=== PATIENT | female | born 1970 | race Caucasian/White ===

== ENCOUNTER 2019-10-18 10:56 | Emergency (ER) | payer BC, OTHER ==
--- NOTE | 2019-10-18 11:18 | ER Document Report ---
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 Patient reports she had a headache on Monday and Monday. She reports she really has not felt good all week. 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 She reports staff upstairs told her her coloring was not good. She denies fever. Reports she has been eating and drinking okay. Reports she is tasting without problems. I have greeted and performed a rapid initial assessment of this patient. A comprehensive ED assessment and evaluation of the patient, analysis of test results and completion of the medical decision making process will be conducted by additional ED providers. TRAVEL OUTSIDE OF THE [place] IN LAST 30 DAYS: No - Related Data Allergies/Adverse Reactions: cobamamide [From B12] Allergy (Severe, Verified 10/18/19 11:08) Hives Cyanocobalamin [From B12] Allergy (Severe, Verified 10/18/19 11:08) Hives sumatriptan [From Imitrex] Allergy (Intermediate, Verified 10/18/19 11:08) Shortness of Breath sumatriptan succinate [From Imitrex] Allergy (Intermediate, Verified 10/18/19 11:08) Shortness of Breath Past Medical History - Past Medical History Cardiac Medical History: Denies: Hx Coronary Artery Disease, Hx Heart Attack, Hx Hypertension Pulmonary Medical History: Denies: Hx Asthma, Hx Bronchitis, Hx COPD, Hx Pneumonia Neurological Medical History: Reports: Hx Migraine. Denies: Hx Cerebrovascular Accident, Hx Seizures Renal/ Medical History: Reports: Hx Ovarian Cysts - right side - removed GI Medical History: Reports: Hx Gastroesophageal Reflux Disease Musculoskeltal Medical History: Denies Hx Arthritis Psychiatric Medical History: Reports: Hx Depression Past Surgical History: Reports: Hx Appendectomy, Hx Section - Immunizations Hx Diphtheria, Pertussis, Tetanus Vaccination: Yes Physical Exam - Vital signs Vitals: Temp Pulse Resp BP Pulse Ox 97.9 F 64 16 143/99 H 99 10/18/19 11:06 10/18/19 11:06 10/18/19 11:06 10/18/19 11:06 10/18/19 11:06 Course - Vital Signs Vital signs: Temp Pulse Resp BP Pulse Ox 97.9 F 64 16 143/99 H 99 10/18/19 11:06 10/18/19 11:06 10/18/19 11:06 10/18/19 11:06 10/18/19 11:06
[2019-10-18 11:57] LABS: ABSOLUTE EOSINOPHILS # (AUTO) 0.1 10^3/uL (0.0-0.6); ABSOLUTE LYMPHOCYTES (AUTO) 1.9 10^3/uL (0.5-4.7); ABSOLUTE MONOCYTES (AUTO) 0.4 10^3/uL (0.1-1.4); ABSOLUTE NEUT (AUTO) 3.8 10^3/uL (1.7-8.2); BASOPHILS % (AUTO) 0.4 % (0-2); EOSINOPHILS % (AUTO) 1.7 % (0-6); HEMATOCRIT 38.5 % (36.0-47.0); HEMOGLOBIN 13.3 g/dL (12.0-15.5); LYMPHOCYTES % (AUTO) 31.2 % (13-45); MEAN CORPUSCULAR HGB CONC 34.4 g/dL (32.0-36.0); MEAN CORPUSCULAR VOLUME 90 fl (80-97); MONOCYTES % (AUTO) 6.1 % (3-13); PLATELET COUNT 204 10^3/uL (150-450); RED BLOOD COUNT 4.27 10^6/uL (3.72-5.28); SEGMENTED NEUTROPHILS % (AUTO) 60.6 % (42-78); TOTAL CELLS COUNTED % (AUTO) 100 %; WHITE BLOOD COUNT 6.2 10^3/uL (4.0-10.5)
[2019-10-18 12:06] LABS: A TYPE INFLUENZA AG NEGATIVE (NEGATIVE); B INFLUENZA AG NEGATIVE (NEGATIVE)
--- NOTE | 2019-10-18 12:16 | RADIOLOGY REPORT (SQ) ---
EXAM DESCRIPTION: CHEST SINGLE VIEW IMAGES COMPLETED DATE/TIME: 10/18/2019 11:50 am REASON FOR STUDY: cp COMPARISON: 10/13/2013 EXAM PARAMETERS: NUMBER OF VIEWS: One view. TECHNIQUE: Single frontal radiographic view of the chest acquired. RADIATION DOSE: NA LIMITATIONS: None. FINDINGS: LUNGS AND PLEURA: No opacities, masses or pneumothorax. No pleural effusion. MEDIASTINUM AND HILAR STRUCTURES: No masses. Contour normal. HEART AND VASCULAR STRUCTURES: Heart normal in size. Normal vasculature. BONES: No acute findings. HARDWARE: None in the chest. OTHER: No other significant finding. IMPRESSION: NO ACUTE RADIOGRAPHIC FINDING IN THE CHEST. TECHNICAL DOCUMENTATION: JOB ID: [id number] 2010 [employer]- All Rights Reserved Reading location - IP/workstation name: [email or web address]
[2019-10-18 12:20] LABS: ALBUMIN 4.5 g/dL (3.5-5.0); ALKALINE PHOSPHATASE 82 U/L (38-126); ANION GAP 10 (5-19); ASPARTATE AMINO TRANSFERASE 24 U/L (14-36); BILIRUBIN,TOTAL 0.6 mg/dL (0.2-1.3); BLOOD UREA NITROGEN 17 mg/dL (7-20); CALCIUM 9.6 mg/dL (8.4-10.2); CARBON DIOXIDE 25 mmol/L (22-30); CHLORIDE 104 mmol/L (98-107); GLUCOSE 90 mg/dL (75-110); POTASSIUM 4.1 mmol/L (3.6-5.0); TOTAL PROTEIN 7.4 g/dL (6.3-8.2)
--- NOTE | 2019-10-18 13:08 | ER Document Report ---
ED General - General Chief Complaint: Chest Pain > 30 Stated Complaint: CHEST PAIN Time Seen by Provider: 10/18/19 11:07 Primary Care Provider: DIANE MISTRY PA-C [Primary Care Provider] - Follow up as needed Mode of Arrival: Wheelchair TRAVEL OUTSIDE OF THE [place] 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 No sputum production. No vomiting. Patient is a non-smoker. She is not diabetic or hypertensive. No history of hyperlipidemia. No history of thromboembolic disease. Family history negative for CAD. HEART Score: HISTORY 1 ECG 1 AGE 3 RISK FACTORS 0 TROPONIN 0 TOTAL: 3 If HEART score is < or = 3 AND both tronponin measurments are normal, the 30 d ay risk of a major adverse cardiac event (all-cause mortality, myocardia infarction or need for coronary revscularization) is < 1% (Sensitivity 100%, NPV 100%). PERC SCORE (HADCLOTS) H no hormone administration A Age less than 50 D NO PRIOR HISTORY OF THROMBOEMBOLIC DISEASE C no hemoptysis L no leg swelling unilaterally O O2 sat greater than 95% T no tachycardia S no surgery/Trauma recently - Related Data Allergies/Adverse Reactions: cobamamide [From B12] Allergy (Severe, Verified 10/18/19 11:08) Hives Cyanocobalamin [From B12] Allergy (Severe, Verified 10/18/19 11:08) Hives sumatriptan [From Imitrex] Allergy (Intermediate, Verified 10/18/19 11:08) Shortness of Breath sumatriptan succinate [From Imitrex] Allergy (Intermediate, Verified 10/18/19 11:08) Shortness of Breath Home Medications: effexor Past Medical History - General Information source: Patient - Social History Smoking Status: Never Smoker Chew tobacco use (# tins/day): No Frequency of alcohol use: None Drug Abuse: None Family History: Reviewed & Not Pertinent Patient has suicidal ideation: No Patient has homicidal ideation: No - Past Medical History Cardiac Medical History: Denies: Hx Coronary Artery Disease, Hx Heart Attack, Hx Hypertension Pulmonary Medical History: Denies: Hx Asthma, Hx Bronchitis, Hx COPD, Hx Pneumonia Neurological Medical History: Reports: Hx Migraine. Denies: Hx Cerebrovascular Accident, Hx Seizures Renal/ Medical History: Reports: Hx Ovarian Cysts - right side - removed GI Medical History: Reports: Hx Gastroesophageal Reflux Disease Musculoskeletal Medical History: Denies Hx Arthritis Psychiatric Medical History: Reports: Hx Depression Past Surgical History: Reports: Hx Appendectomy, Hx Section - Immunizations Hx Diphtheria, Pertussis, Tetanus Vaccination: Yes Review of Systems - Review of Systems Notes: Constitutional: As per HPI. HENT: Negative for sore throat. Eyes: Negative for visual changes. Cardiovascular: As per HPI. Respiratory: As per HPI. Gastrointestinal: Negative for abdominal pain, vomiting or diarrhea. Genitourinary: Negative for dysuria. Musculoskeletal: Negative for back pain. Skin: Negative for rash. Neurological: Negative for headaches, focal weakness or numbness. 10 point ROS negative except as marked above and in HPI. Physical Exam - Vital signs Vitals: Temp Pulse Resp BP Pulse Ox 97.9 F 64 16 143/99 H 99 10/18/19 11:06 10/18/19 11:06 10/18/19 11:06 10/18/19 11:06 10/18/19 11:06 - Notes Notes: Remote Exam Using Telemedicine System GENERAL: Mildly obese middle-aged female appearing in no acute distress. SKIN: no rashes. HEAD: Normocephalic atraumatic. EYES: PERRL. EOMI. Conjunctivae and sclerae clear. NOSE: CLEAR. MOUTH: Moist mucosa. Good dentition. No stridor or edema. No drooling. NECK: Full ROM. No visible masses or thyromegaly. No JVD. BACK: Symmetrical. CHEST: Respirations unlabored. Expands symmetrical. ABDOMEN: Non-distended. GENITALIA: Deferred. EXTREMITIES: No edema. NEUROLOGICAL: GCS 15. Alert and oriented x3. Normal gait. Fluent speech. Cranial nerves II through XII intact. Motor and cerebellar normal. PSYCHIATRIC: Flat affect. Course - Re-evaluation Re-evalutation: 10/18/19 13:09 Influenza a and B screens negative. Chest x-ray normal per radiologist. EKG shows normal sinus rhythm with a rate of 63 and nonspecific T wave changes. I would classify this as a person under investigation and we will submit a COVID nasal swab. We advised symptomatic treatment with increased fluids and Tylenol and self-isolation for the next 14 days. - Vital Signs Vital signs: Temp Pulse Resp BP Pulse Ox 97.9 F 64 13 131/83 H 98 10/18/19 11:08 10/18/19 11:06 10/18/19 12:02 10/18/19 12:01 10/18/19 12:02 - Laboratory Result Diagrams: 10/18/19 11:32 10/18/19 11:32 Laboratory results interpreted by me: 10/18/19 11:32 Creatinine 0.51 L Discharge - Discharge Clinical Impression: Exposure to COVID-19 virus Chest pain Qualifiers: Chest pain type: unspecified Qualified Code(s): R07.9 - Chest pain, unspecified Condition: Stable Disposition: HOME, SELF-CARE Instructions: Chest Pain of Unclear Cause ([facility]) Additional Instructions: Increase oral fluids. Tylenol as needed. Isolation at home for the next 14 days. Return to the emergency department as necessary for new or worsening symptoms. Follow-up with your primary care physician. Forms: Return to Work Referrals: DIANE MISTRY PA-C [Primary Care Provider] - Follow up as needed
[2019-10-18 15:29] VITALS: BP 127/74
--- NOTE | 2019-10-20 10:21 | EKG REPORT ---
SEVERITY:- BORDERLINE ECG - SINUS RHYTHM BORDERLINE T ABNORMALITIES, ANTERIOR LEADS : Confirmed by: Stephen Cerrato 20-Oct-2019 10:21:03
== END 2019-10-18 15:42 | disposition home or self-care (01) ==
LOC: ER 10:56
DX: Z20.828 Contact with and (suspected) exposure to other viral communicable diseases (principal); R07.9 Chest pain, unspecified; R06.00 Dyspnea, unspecified; R53.81 Other malaise
CPT/HCPCS: 36415; 71045; 80053; 84484; 85025; 87635; 87804; 93005; 93010; 99285

== ENCOUNTER → 2020-07-03 | Outpatient (CLI) | payer BC ==
[~2020-07-03] MED LIST: COVID-19 VACCINE (PFIZER)/PF 30 MCG/0.3 ML VIAL IM ONE; EPINEPHRINE INJ/PF 1 MG/1 ML AMPULE IM PRN
== END ==
LOC: EMPHEALTH 08:42
PROVIDERS: ATTEND Internal Medicine
DX: Z23 Encounter for immunization (principal)
CPT/HCPCS: 91300

== ENCOUNTER → 2020-07-24 | Outpatient (CLI) | payer BC | LOC: EMPHEALTH 08:44 | PROVIDERS: ATTEND Internal Medicine | DX: Z23 Encounter for immunization (principal) | CPT/HCPCS: 91300 ==